=== PATIENT | female | born 1990 | race Caucasian/White ===

== ENCOUNTER 2021-10-15 12:00 | Emergency (ER) | payer BC, OTHER ==
[~2021-10-15] VITALS: Ht 157 cm; Wt 92.0 kg
[2021-10-15 12:05] VITALS: BP 110/88
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
[2021-10-15] MEDS ORDERED: KETOROLAC 60 MG/2 ML VIAL IM STA (12:41)
[2021-10-15] MEDS ORDERED: diphenhydrAMINE 50 MG/ML INJ (BENADRYL) IM STA (12:41)
[2021-10-15] MEDS ORDERED: ORPHENADRINE 60 MG/2 ML (NORFLEX) AMP (ED ONLY) IM STA (12:41)
--- NOTE | 2021-10-15 13:46 | Diagnostic Imaging Report ---
PROCEDURE: CT head and CT cervical spine without contrast. TECHNIQUE: Multiple contiguous axial images were obtained through the brain and cervical spine without the use of intravenous contrast. Sagittal and coronal reformations through the cervical spine were then performed. Auto Exposure Controls were utilized during the CT exam to meet ALARA standards for radiation dose reduction. INDICATION: Posterior neck and head pain, injury. COMPARISON: No priors. FINDINGS: CT HEAD: There is no hemorrhage, hydrocephalus, edema, mass, mass effect, or evidence for an elevation of the intracranial pressures. The basilar cisterns are patent. There is no sulcal effacement. No calvarial fracture deformity. There was no hemo-sinus. No pneumocephalus. CT CERVICAL: Body heights are maintained. The alignment is anatomic. The craniocervical relationship appeared unremarkable. No facet joint dislocation. No cervical fracture or paraspinal hemorrhage. There is spondylosis and uncovertebral joint spurring, greatest on the left at the C5-C6 level resulting in [id number]-ga-hzlevmzn bony canal and oyif-hy-ovvabpmz left bony foraminal stenosis. An acute-appearing abnormality is not identified. IMPRESSION: 1. CT head: No hemorrhage, edema, or acute finding. 2. Cervical spine: Degenerative changes with mild stenoses. No fracture or malalignment. No acute-appearing abnormality. Dictated by: Dictated on workstation # [id number]
[2021-10-15] MEDS ORDERED: METH-732 PO (14:07)
[2021-10-15] MEDS ORDERED: PRD20T PO (14:07)
== END 2021-10-15 14:14 | disposition home or self-care (01) ==
LOC: ER FS 12:04
DX: S16.1XXA Strain of muscle, fascia and tendon at neck level, initial encounter (principal); R51.9 Headache, unspecified; M48.02 Spinal stenosis, cervical region; M54.12 Radiculopathy, cervical region; F17.200 Nicotine dependence, unspecified, uncomplicated; W50.0XXA Accidental hit or strike by another person, initial encounter; Y92.239 Unspecified place in hospital as the place of occurrence of the external cause; Y99.0 Civilian activity done for income or pay
CPT/HCPCS: 70450; 72125; 99281